=== PATIENT | female | born 1965 | race African-American/Black ===

== ENCOUNTER 2024-02-10 14:33 | Outpatient (AMB) | payer OTHER, SELFPAY ==
--- NOTE | 2024-02-10 14:39 | A.OFFVIS_ITS ---
Vital Signs 02/10/24 14:40 Height 5 ft 3 in Weight 180 lb BMI 31.9 BP 133/63 Blood Pressure Location Lt brachial Position Sitting Pulse 97 Intake Visit Reasons: Gastroesophageal reflux disease (GERD) Intake Note: Patient new consult for GERD. Patient cc: acid reflex with burning sensation and she can feel the food going down burning, denies any other GI issues. Pediatric Registered Nurse Required: No Accompanied by: Self / Same As Patient Allergies codeine [CODEINE] Allergy (Intermediate, Unverified 07/06/20 18:58) HIVES Penicillins [PENICILLINS] Allergy (Intermediate, Unverified 07/06/20 18:58) RASH,ITCH benzonatate [From TESSALON PERLES] Allergy (Unknown, Unverified 07/06/20 18:58) REACTION UNKNOWN penicillin V Allergy (Unknown, Verified 09/26/15 00:00) PAIN MEDS Adverse Reaction (Unknown, Uncoded 07/06/20 18:58) SENSITIVITY Medication List - Last Reconciled 02/10/24 by Sandrita Meier PA-C naproxen 500 mg PO BID omeprazole 20 mg PO DAILY HPI Comments Details: A 58 y/o female with feeling in her throat when she swallows- omeprazole for the past month-she associates to the texture of the food. She has hyper gag reflex She has seasonal allergies- Colonoscopy > 10 year Cardiac work up pending-she is having testing -limited detail JAMAR- using a mouthguard- been helpful Appetite is good No nausea, vomiting, hematemesis, hematochezia fever or chills PFSH Surgical History Hx of varicose vein stripping H/O tubal ligation Family History Father Gallbladder disease Mother HTN (hypertension) Brother HTN (hypertension) Social History Household Members: Family Alcohol intake: never Patient Tobacco Use Status: Never used Tobacco Review of Systems Const All systems reviewed & are unremarkable except as noted in HPI and below ENT Reports dysphagia Card Denies chest pain and Denies dyspnea Resp Denies dyspnea GI Reports dysphagia, Reports heartburn and Reports nausea Physical Exam Vital Signs: Last Vital Signs Pulse 97 02/10/24 14:40 BP 133/63 02/10/24 14:40 BMI result Body Mass Index 31.9 Const General: cooperative, healthy appearing, comfortable and no acute distress Orientation/consciousness: patient oriented x3 Limitations: no limitations Resp Effort & Inspection: normal respiratory effort and able to speak in complete sentences Auscultation: clear to auscultation bilaterally, no rales, no rhonchi and no wheezes Cardio Rate: regular rate Rhythm: regular rhythm Heart sounds: S1 normal heart sound present and S2 normal heart sound present GI Palpation (GI): Soft to palpation and nontender Auscultation: normal bowel sounds Neuro General: patient oriented x3 Psych Appearance: grossly normal Mental Status: mental status grossly normal Speech and movement: Normal speech and movement present Affect: normal affect Attitude: cooperative Thought process: Normal thought process present Thought content: Normal thought content present Assessment & Plan Assessment & Plan (1) Dysphagia: Comment: Vague, chronic Code(s): R13.10 - Dysphagia, unspecified Category: Medical Plan: Eat slowly chew EGD when timing appropriate (2) 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 - Other diseases of pharynx Category: Medical (3) Encounter for screening colonoscopy: Comment: Just due for screening- Code(s): Z12.11 - Encounter for screening for malignant neoplasm of colon Category: Medical Plan: Will further discuss next visit Plan [facility] from [facility] or - Radiology Switch ppi- pantoprazole 40mg Discuss E/c on return after cardiac w/u complete Medications: New pantoprazole 40 mg PO DAILY 30 tabs 2RF 30 days Patient Instructions: pantoprazole 40 mg Eat slowly chew well Small portions at a time Will further discuss EGD colonoscopy at next visit Reinforced importance of following through with cardiac workup Coding Level of Care Code New Pt Level 3 (65571) Diagnoses Dysphagia R13.10 Hyperactive gag reflex J39.2 Encounter for screening colonoscopy Z12.11 Time Spent (min) 30
[2024-02-10 14:40] VITALS: BP 133/63; PULSE 97; BMI 31.9
== END 2024-02-10 15:18 | disposition home or self-care (01) ==
PROVIDERS: PCP Physician Assistant Medical; Visit Provider Physician Assistant
DX: R13.10 Dysphagia, unspecified (principal); J39.2 Other diseases of pharynx; Z12.11 Encounter for screening for malignant neoplasm of colon
CPT/HCPCS: 99203

== ENCOUNTER → 2024-02-10 14:33 | Outpatient (BNVA) | payer OTHER, SELFPAY | PROVIDERS: PCP Physician Assistant Medical; Visit Provider Physician Assistant ==